=== PATIENT | male | born 1945 | race Caucasian/White ===

== ENCOUNTER 2017-06-01 12:42 | Day surgery (SDC) | payer MEDICARE ==
[~2017-06-01] VITALS: Ht 180.3 cm; Wt 74.7 kg
[~2017-06-01 12:42] MED LIST: PHENYLEPHRINE 10 MG/ML ONE; SUCCINYLCHOLINE 20 MG/ML, 10ML ONE
[2017-06-01] MEDS ORDERED: ASPI-496 PO (13:25)
[2017-06-01] MEDS ORDERED: TIOT18CA INH (13:25)
[2017-06-01] MEDS ORDERED: LACTATED RINGERS 1,000 ML IV SCH (13:51)
[2017-06-01 13:53] VITALS: BP 122/81
[2017-06-01] MEDS ORDERED: LIDOCAINE GEL 2%, 5ML ONE (15:02)
[2017-06-01] MEDS ORDERED: FENTANYL PF 250 MCG/5ML ONE (15:03)
[2017-06-01] MEDS ORDERED: MIDAZOLAM 1 MG/ML, 2ML ONE (15:03)
[2017-06-01] MEDS ORDERED: PROPOFOL 10 MG/ML, 20ML ONE (15:55)
[2017-06-01] MEDS ORDERED: ONDANSETRON 2MG/ML, 2ML ONE (15:55)
[2017-06-01] MEDS ORDERED: EPHEDRINE 50 MG/ML, 1ML ONE (15:55)
[2017-06-01] MEDS ORDERED: DEXAMETHASONE 4 MG/ML, 1ML ONE (15:55)
[2017-06-01] MEDS ORDERED: CEFAZOLIN 1,000 MG ONE (15:55)
[2017-06-01] MEDS ORDERED: GLUCAGON 1 MG ONE ×2 (15:59→16:01)
[2017-06-01] MEDS ORDERED: OMNIPAQUE 350 MG/ML, 50 ML BOTTLE ONE (16:26)
[2017-06-01] MEDS ORDERED: PROMETHAZINE 25 MG/ML, 1ML IV PRN (16:30)
[2017-06-01] MEDS ORDERED: OXYcodone 5 MG/5 ML ORAL.SOL UDC PO PRN (16:30)
[2017-06-01] MEDS ORDERED: PROMETHAZINE 12.5 MG SUPP PR PRN (16:30)
[2017-06-01] MEDS ORDERED: LABETALOL 5MG/ML, 20ML IV PRN (16:30)
[2017-06-01] MEDS ORDERED: FENTANYL PF 100 MCG/2ML IV PRN (16:30)
[2017-06-01] MEDS ORDERED: MEPERIDINE/PF 25MG/0.5ML IVPush PRN (16:30)
[2017-06-01] MEDS ORDERED: ACETAMINOPHEN 325 MG TABLET PO PRN (16:30)
[2017-06-01] MEDS ORDERED: HYDROmorphone 1 MG/ML, 1ML IV PRN (16:30)
[2017-06-01] MEDS ORDERED: MIDAZOLAM 1 MG/ML, 2ML IV PRN (16:30)
[2017-06-01] MEDS ORDERED: ONDANSETRON 2MG/ML, 2ML IVPush PRN (16:30)
[2017-06-01] MEDS ORDERED: ALBUTEROL/IPRATROPIUM 2.5MG/0.5MG, 3 ML NPPB PRN (16:30)
[2017-06-01] MEDS ORDERED: DIAZEPAM 5 MG/ML, 2ML IVPush PRN (16:30)
[2017-06-01] MEDS ORDERED: hydrALAzine 20 MG/ML, 1ML IV PRN (16:30)
[2017-06-01] MEDS ORDERED: ACETAMINOPHEN 650 MG/20.3 ML UDC ONE (16:55)
[2017-06-01] MEDS ORDERED: OXYcodone 5 MG/5 ML ORAL.SOL UDC ONE (16:55)
== END 2017-06-01 18:10 ==
LOC: OUT 12:42
PROVIDERS: ATTEND Internal Medicine
DX: D49.0 Neoplasm of unspecified behavior of digestive system (principal); K80.50 Calculus of bile duct without cholangitis or cholecystitis without obstruction; K86.89 Other specified diseases of pancreas; J44.9 Chronic obstructive pulmonary disease, unspecified; F17.290 Nicotine dependence, other tobacco product, uncomplicated; Z98.890 Other specified postprocedural states; Z98.52 Vasectomy status
CPT/HCPCS: 43242; 43261; 43264; 74328; 88172; 88173; 88307; 93005; C1769; J0330; J1100; J1610; J2250; J2370; J2405; J2704; J3010; J7120; Q9967; J0690